=== PATIENT | female | born 1955 | race African-American/Black ===

== ENCOUNTER 2017-02-01 19:00 | Emergency (ER) | payer OTHER ==
[~2017-02-01] VITALS: Ht 170.2 cm; Wt 85.3 kg
[~2017-02-01 19:00] MED LIST: AMLO5TAB8 PO; LIP80 PO; LISI30TA6 PO; METF500T PO; ORE25 PO; VENL37.55 PO
[2017-02-01 19:21] VITALS: BP 156/100
--- NOTE | 2017-02-01 20:02 | NUR ---
PT TAKEN TO BED 3
--- NOTE | 2017-02-01 20:03 | NUR ---
61 Y/O F W/C/O R SIDE ABD PAIN X 3 DAYS, DENIES ANY N/V/D OR FEVER AND CHILLS. MED DM, AND HNT. NO S/S OF DISTRESS NOTED AT THE MOMENT. ER MADE AWARE.
--- NOTE | 2017-02-01 20:06 | NUR ---
Dr. Palacio evaluating patient at bedside.
[2017-02-01] MEDS ORDERED: MORPHINE SULFATE 4 MG/ML SYR IVP ONE ×2 (20:15→22:20)
[2017-02-01] MEDS ORDERED: NACL 0.9% 2,000 ML IV ONE (20:15)
[2017-02-01] MEDS ORDERED: ONDANSETRON 4 MG/2 ML VIAL IVP ONE (20:15)
[2017-02-01 20:53] LABS: HEMATOCRIT 42.4 % (36-48); MEAN CORPUSCULAR HEMOGLOBIN 30 pg (27-31); MEAN CORPUSCULAR HGB CONC 33 g/dL (33-37); MEAN CORPUSCULAR VOLUME 90 fL (80-94); PLATELET COUNT (AUTO) 159 K/uL (140-450); RED BLOOD CELL COUNT(AUTO) 4.72 MIL/uL (4.20-5.40); RED CELL DISTRIBUTION WIDTH 13.1 % (11.6-13.7); WHITE BLOOD COUNT (AUTO) 6.8 K/uL (4.8-10.8)
[2017-02-01 20:56] LABS: ALBUMIN 4.8 g/dL (3.4-5.0); ANION GAP 12.4 (8-16); CALCIUM 9.7 mg/dL (8.5-10.1); CARBON DIOXIDE 33.2 mmol/L (21-32); POTASSIUM 3.6 mmol/L (3.5-5.1); TOTAL BILIRUBIN 0.4 mg/dL (0.0-1.0); TOTAL PROTEIN, SERUM 8.1 g/dL (6.4-8.2)
[2017-02-01 21:06] LABS: PROTHROMBIN TIME 9.9 secs (10.8-13.4)
[2017-02-01 21:07] LABS: PARTIAL THROMBOPLASTIN TIME 17.8 secs (22-35.6)
--- NOTE | 2017-02-01 21:08 | NUR ---
PT TAKEN TO CT
[2017-02-01 21:10] LABS: BAND % (MANUAL) 1 % (0-8); EOSINOPHILS % (MANUAL) 1 % (0-4); LYMPHOCYTES % (MANUAL) 42 % (20-46); MONOCYTES % (MANUAL) 6 % (5-12); NEUTROPHILS % (MANUAL) 50 (43-65)
[2017-02-01 21:11] LABS: PLATELET ESTIMATE ADEQUATE
--- NOTE | 2017-02-01 21:36 | NUR ---
PT RETURN FROM CT
--- NOTE | 2017-02-01 21:38 | NUR ---
PT MOVED TO BED 6
--- NOTE | 2017-02-01 21:45 | NUR ---
PT TRANSFERRED TO BED 6, REPORT RECEIVED FROM TAYA PEACOCK
[2017-02-01 22:51] LABS: APPEARANCE,URINE CLOUDY (CLEAR); BILIRUBIN,URINE NEGATIVE (NEGATIVE); BLOOD, URINE NEGATIVE (NEGATIVE); COLOR,URINE YELLOW (YELLOW); LEUKOCYTE ESTERASE ,URINE NEGATIVE (NEGATIVE); NITRITE, URINE NEGATIVE (NEGATIVE); PROTEIN,URINE NEGATIVE (NEGATIVE); UGLUCOSE NEGATIVE (NEGATIVE); UROBILINOGEN,URINE 0.2 EU/dL (0.2 - 1)
[2017-02-01 22:54] LABS: BACTERIA,URINE RARE /HPF (None Seen); CALCIUM OXALATE CRYSTALS,UR 0-10 /HPF (None Seen); RBC,URINE 0-3 /HPF (0-5); SQUAMOUS EPITHELIAL CELL,UR 0-3 /LPF (0-3 (FEW)); WBC,URINE 0-3 /HPF (0-5)
[2017-02-01 22:55] LABS: URINE AMORPHOUS URATE 4+ /HPF (None Seen)
[2017-02-01] MEDS ORDERED: HYDROcodone/APAP 5/325 MG 1 TAB TAB PO ONE (23:25)
[2017-02-01 23:58] VITALS: BP 149/95
--- NOTE | 2017-02-01 23:59 | NUR ---
Patient discharged with v/s stable. Written and verbal after care instructions given and explained. Patient alert, oriented and verbalized understanding of instructions. Ambulatory with steady gait. All questions addressed prior to discharge. ID band removed. Patient advised to follow up with PMD. Rx of FLOMAX AND NORCO given. Patient educated on indication of medication including possible reaction and side effects. Opportunity to ask questions provided and answered. COPY OF CD GIVEN TO PT.
== END 2017-02-01 23:59 | disposition home or self-care (01) ==
LOC: MED 19:00
DX: R10.31 Right lower quadrant pain (principal); E11.9 Type 2 diabetes mellitus without complications; I10 Essential (primary) hypertension; Z87.442 Personal history of urinary calculi; Z90.710 Acquired absence of both cervix and uterus
CPT/HCPCS: 36415; 74177; 80053; 81001; 85025; 85610; 85730; 96361; 96374; 96375; 96376; 99285; J2270; J2405; J7030; Q9967

== ENCOUNTER 2019-06-23 13:47 | Inpatient (IN) | payer OTHER ==
[~2019-06-23] VITALS: Ht 170.2 cm; Wt 81.6 kg
--- NOTE | 2019-06-23 13:47 | NUR ---
PT BIBA to bed 10.
[2019-06-23 13:49] VITALS: BP 156/105
--- NOTE | 2019-06-23 15:08 | NUR ---
XRAY AT BEDSIDE.
--- NOTE | 2019-06-23 15:11 | NUR ---
PT PLACED ON BEDPAN, LINENS CHANGED, URINE SAMPLE COLLECT AND SENT TO LAB. PT POSITIONED TO COMFORT AFTER.
--- NOTE | 2019-06-23 15:22 | NUR ---
Dr. Reed evaluating patient at bedside.
[2019-06-23 15:50] LABS: BASOPHILS % (AUTO) 0.7 % (0.0-2.0); EOSINOPHILS # (AUTO) 0.1 K/uL (0-0.4); EOSINOPHILS % (AUTO) 2.2 % (0.0-4.0); HEMOGLOBIN 15.2 g/dL (12.0-16.0); LYMPHOCYTES # (AUTO) 1.2 K/uL (2.5-16.5); LYMPHOCYTES % (AUTO) 23.9 % (20.5-51.1); MEAN CORPUSCULAR HEMOGLOBIN 28 pg (27-31); MEAN CORPUSCULAR HGB CONC 33 g/dL (33-37); MEAN CORPUSCULAR VOLUME 84.8 fL (80-94); MONOCYTES # (AUTO) 0.3 K/uL (0.8-1.0); MONOCYTES % (AUTO) 5.4 % (1.7-9.3); NEUTROPHILS # (AUTO) 3.4 K/uL (1.8-7.7); NEUTROPHILS % (AUTO) 67.8 % (42.2-75.2); PLATELET COUNT (AUTO) 252 K/uL (140-450); RED BLOOD CELL COUNT(AUTO) 5.42 MIL/uL (4.20-5.40); RED CELL DISTRIBUTION WIDTH 15.9 % (11.6-13.7); WHITE BLOOD COUNT (AUTO) 5.1 K/uL (4.8-10.8)
[2019-06-23] MEDS ORDERED: NACL 0.9% 1,000 ML IV ONE (16:00)
[2019-06-23 16:08] LABS: APPEARANCE,URINE CLEAR (CLEAR); BILIRUBIN,URINE NEGATIVE (NEGATIVE); BLOOD, URINE NEGATIVE (NEGATIVE); COLOR,URINE YELLOW (YELLOW); LEUKOCYTE ESTERASE ,URINE TRACE (NEGATIVE); NITRITE, URINE NEGATIVE (NEGATIVE); UGLUCOSE NEGATIVE (NEGATIVE)
[2019-06-23 16:10] LABS: ANION GAP 15.8 (8-16); CARBON DIOXIDE 29.3 mmol/L (21-32)
[2019-06-23 16:13] LABS: POTASSIUM 2.1 mmol/L (3.5-5.1)
[2019-06-23 16:14] LABS: RBC,URINE NONE SEEN /HPF (0-5); WBC,URINE 0-5 /HPF (0-5)
[2019-06-23] MEDS ORDERED: KCL 20 MEQ/WATER INJ PREMIX 200 ML IV ONE (16:15)
[2019-06-23] MEDS ORDERED: POTASSIUM CHLORIDE 10 MEQ TABER PO ONE (16:15)
[2019-06-23] MEDS ORDERED: MORPHINE SULFATE 4 MG/ML SYR IVP ONE (18:20)
[2019-06-23] MEDS ORDERED: cloNIDine 0.1 MG TAB PO PRN (18:50)
[2019-06-23] MEDS ORDERED: MAGNESIUM OXIDE 400 MG TAB PO PRN (18:50)
[2019-06-23] MEDS ORDERED: MAG SULF 2000 MG/WATER PREMIX 50 ML IV PRN (18:50)
[2019-06-23] MEDS ORDERED: ALUMINUM HYD/MAG/SIMETHICONE 30 ML UDC PO PRN (18:50)
[2019-06-23] MEDS ORDERED: DOCUSATE SODIUM 250 MG GELCAP PO PRN (18:50)
[2019-06-23] MEDS ORDERED: ZOLPIDEM 5 MG TAB PO PRN (18:50)
[2019-06-23] MEDS ORDERED: ACETAMINOPHEN 650 MG SUPP RC PRN (18:50)
[2019-06-23] MEDS ORDERED: HYDROcodone/APAP 5/325 MG 1 TAB TAB PO PRN ×2 (18:50)
[2019-06-23] MEDS ORDERED: diphenhydrAMINE 50 MG/ML VIAL IVP PRN (18:50)
[2019-06-23] MEDS ORDERED: POTASSIUM CHLORIDE 40 MEQ, LIDOCAINE 1% 25 MG in NACL 0.9% 250 ML IV PRN (18:50)
[2019-06-23] MEDS ORDERED: BISACODYL 10 MG SUPP RC PRN (18:50)
[2019-06-23] MEDS ORDERED: guaiFENesin DM 200/20 MG-10 ML 10 ML UDC PO PRN (18:50)
[2019-06-23] MEDS ORDERED: ONDANSETRON 4 MG/2 ML VIAL IVP PRN (18:50)
[2019-06-23] MEDS ORDERED: ALBUTEROL 0.083% 2.5 MG/3 ML NEBU INH PRN (18:50)
[2019-06-23] MEDS ORDERED: ACETAMINOPHEN 325 MG TAB PO PRN (18:50)
[2019-06-23] MEDS ORDERED: DEXTROSE 50% 50 ML SYR IVP PRN (18:50)
[2019-06-23] MEDS ORDERED: INSULIN LISPRO SLIDING SCALE 100 UNITS/ML VIAL SUBQ PRN (18:50)
[2019-06-23] MEDS ORDERED: POTASSIUM CHLORIDE 10 MEQ TABER PO PRN (18:50)
[2019-06-23] MEDS ORDERED: SODIUM PHOSPHATE 118 ML ENEM RC PRN (18:50)
[2019-06-23] MEDS ORDERED: IPRATROPIUM 0.02% 0.5 MG/2.5 ML NEBU INH PRN (18:50)
[2019-06-23] MEDS ORDERED: LORazepam 2 MG/ML VIAL IVP PRN (18:50)
[2019-06-23 19:00] VITALS: BP 149/79
--- NOTE | 2019-06-23 19:00 | NUR ---
Patient will be admitted to care of Dr Aldana. Admited to tele room 106b. Belongings list completed. Report to TAYA Jose
--- NOTE | 2019-06-23 19:05 | NUR ---
RECEIVED BEDSIDE REPORT FROM ER NURSE. PATIENT IS AWAKE, ALERT, AND COOPERATIVE. ADMITTING DIAGNOSIS HYPOKALEMIA. C/O GENERALIZED WEAKNESS. RESPIRATION EVEN UNLABORED ON ROOM AIR. SKIN IS WARM AND DRY. IV PATENT AND INTACT. HEART RATE REGULAR. S1 AND S2 NOTED. BOWEL SOUNDS ACTIVE AND PRESENT IN ALL 4 QUADRANTS. ABDOMEN SOFT AND NON-TENDER. LAST BM 06/22/19. PATIENT IS RECEIVING POTASSIUM 20MEQ THAT STARTED FROM ER. DENIES PAIN. MRSA SCREEN DONE. VITALS WERE TAKEN. ALL SAFETY MEASURES IN PLACE. ORIENT PATIENT TO ROOM, STAFF, AND CALL LIGHT. PLAN OF CARE WAS DISCUSSED. BED IS AT LOW POSITION. CALL LIGHT WITHIN REACH AND VERBALIZES ITS USE. WILL CONTINUE TO MONITOR.
[2019-06-23] MEDS: BLOOD GLUCOSE MONITORING 1 DEV DEV FS SCH (20:23)
[2019-06-23] MEDS: metFORMIN 500 MG TAB PO SCH (20:24)
--- NOTE | 2019-06-23 20:25 | NUR ---
POTASSIUM CHLORIDE 20MEq FIRST DOSE FINISHED. 2ND BAG OF POTASSIUM CHLORIDE 20MEQ ADMINISTERED PER ORDER. ORDER IS TOTAL OF 40MEQ. WILL CONTINUE TO MONITOR.
--- NOTE | 2019-06-23 21:00 | NUR ---
ALL SCHEDULED MEDS WERE GIVEN PER ORDER. WILL CONTINUE TO MONITOR
--- NOTE | 2019-06-23 21:45 | NUR ---
PATIENT COMPLAINED OF LEFT KNEE PAIN 8. PRN PAIN MED ADMINISTERED PER ORDER. WILL CONTINUE TO MONITOR.
[2019-06-23] MEDS: MORPHINE SULFATE 2 MG/ML SYR IVP PRN (21:46)
--- NOTE | 2019-06-23 23:00 | NUR ---
PATIENT IN BED WATCHING TV RESPIRATION EVEN UNLABORED ON ROOM AIR. NO DISTRESS NOTED. WILL CONTINUE TO MONITOR.
[2019-06-24] VITALS: BP 145/83
--- NOTE | 2019-06-24 | NUR ---
VITALS WERE TAKEN. PATIENT IN STABLE CONDITION. NO DISTRESS NOTED. WILL CONTINUE TO MONITOR.
--- NOTE | 2019-06-24 02:00 | NUR ---
CHECKED PATIENT. PATIENT SLEEPING RESPIRATION EVEN UNLABORED ON ROOM AIR. NO DISTRESS NOTED. WILL CONTINUE TO MONITOR.
[2019-06-24] MEDS: MORPHINE SULFATE 2 MG/ML SYR IVP PRN ×4 (03:58→21:04)
[2019-06-24 04:00] VITALS: BP 137/86
--- NOTE | 2019-06-24 04:00 | NUR ---
VITALS WERE TAKEN. PATIENT IN STABLE CONDITION. COMPLAINED OF LEG PAIN 8/. PRN PAIN MED ADMINISTERED PER ORDER. WILL CONTINUE TO MONITOR.
[2019-06-24] MEDS: BLOOD GLUCOSE MONITORING 1 DEV DEV FS SCH ×4 (06:22→20:31)
--- NOTE | 2019-06-24 07:52 | NUR ---
ENDORSED PATIENT TO DAY SHIFT NURSE KEESHA FOR CONTINUITY OF CARE. PATIENT IN STABLE CONDITION.
[2019-06-24 08:00] VITALS: BP 139/77
--- NOTE | 2019-06-24 08:24 | NUR ---
PATIENT HAS BEEN SCREENED AND CATEGORIZED MODERATE NUTRITION RISK. PATIENT WILL BE SEEN WITHIN 3-5 DAYS OF ADMISSION. 06/26/19 06/28/[address]
[2019-06-24 08:51] LABS: ANION GAP 13.5 (8-16); CARBON DIOXIDE 30.5 mmol/L (21-32); CREATININE 0.8 mg/dL (0.6-1.3)
[2019-06-24] MEDS ORDERED: amLODIPine 5 MG TAB PO SCH (09:00)
[2019-06-24] MEDS: LISINOPRIL 10 MG TAB PO SCH (09:36)
[2019-06-24] MEDS: VENLAFAXINE 37.5 MG TAB PO SCH (09:36)
[2019-06-24] MEDS: metFORMIN 500 MG TAB PO SCH ×2 (09:37→20:33)
[2019-06-24] MEDS: ATORVASTATIN 80 MG TAB PO SCH (09:37)
[2019-06-24 13:05] VITALS: BP 139/77
--- NOTE | 2019-06-24 13:31 | NUR ---
CONTACTED PATIENT'S PCP RALPH GONZALES'S OFFICE AT [phone] FOR POST DISCHARGE APPOINTMENT, ABLE TO SPEAK TO CORI. SHE PROVIDED ME WITH JUL 01, 2019 AT 1100. ADDRESS TO THE OFFICE IS [address] [place] [address], [id number]. WILL PROVIDE A COPY TO THE PATIENT.
[2019-06-24] MEDS ORDERED: MAG SULF 2000 MG/WATER PREMIX 50 ML IV SCH (14:00)
--- NOTE | 2019-06-24 15:44 | NUR ---
Waterworks Chief Engineer Note: I provided patient with post discharge follow up appt made by Billing And Accounting Staff Assistant Tonya.
[2019-06-24 16:00] VITALS: BP 137/80
[2019-06-24] MEDS ORDERED: POTASSIUM CHLORIDE 10 MEQ TABER PO SCH (16:00)
--- NOTE | 2019-06-24 19:10 | NUR ---
RECEIVED BEDSIDE REPORT FROM DAY SHIFT NURSE. PATIENT IS AWAKE, ALERT, AND COOPERATIVE. RESPIRATION EVEN UNLABORED ON ROOM AIR. NO DISTRESS NOTED. SKIN IS WARM AND DRY. IV PATENT AND INTACT. DENIES PAIN. PLAN OF CARE WAS DISCUSSED. ALL SAFETY MEASURES IN PLACE. BED IS AT LOW POSITION. CALL LIGHT WITHIN REACH AND VERBALIZES ITS USE. WILL CONTINUE TO MONITOR.
[2019-06-24 20:00] VITALS: BP 138/75
--- NOTE | 2019-06-24 20:00 | NUR ---
INITIAL ASSESSMENT DONE. VITALS WERE TAKEN. PATIENT IN STABLE CONDITION. NO DISTRESS NOTED. WILL CONTINUE TO MONITOR.
--- NOTE | 2019-06-24 21:00 | NUR ---
ALL SCHEDULED MEDS WERE GIVEN PER ORDER. NO ASE NOTED. WILL CONTINUE TO MONITOR.
--- NOTE | 2019-06-24 21:05 | NUR ---
PATIENT COMPLAINED OF 8/10 LEFT KNEE PAIN. PRN PAIN MED ADMINISTERED PER ORDER. WILL CONTINUE TO MONITOR.
--- NOTE | 2019-06-24 22:00 | NUR ---
PATIENT IV GOT INFILTRATED. DISCONTINUE NO ACTIVE BLEEDING SEEN. CANNULA TIP INTACT. STARTED A NEW IV LINE 24 G LEFT HAND.PATIENT TOLERATING IT WELL. WILL CONTINUE TO MONITOR.
[2019-06-25] VITALS: BP 134/77
--- NOTE | 2019-06-25 | NUR ---
VITALS WERE TAKEN. PATIENT IN STABLE CONDITION. NO DISTRESS NOTED. WILL CONTINUE TO MONITOR.
--- NOTE | 2019-06-25 02:00 | NUR ---
CHECKED ON PATIENT. PATIENT SLEEPING RESPIRATION EVEN UNLABORED ON ROOM AIR. NO DISTRESS NOTED. WILL CONTINUE TO MONITOR.
[2019-06-25 04:00] VITALS: BP 140/84
--- NOTE | 2019-06-25 04:00 | NUR ---
VITALS WERE TAKEN. PATIENT IN STABLE CONDITION. NO DISTRESS NOTED. WILL CONTINUE TO MONITOR.
[2019-06-25] MEDS: BLOOD GLUCOSE MONITORING 1 DEV DEV FS SCH ×4 (06:04→20:22)
[2019-06-25 07:01] LABS: MAGNESIUM 2.1 mg/dL (1.8-2.4); PHOSPHORUS 3.5 mg/dL (2.5-4.9)
[2019-06-25 07:04] LABS: BASOPHILS % (AUTO) 0.4 % (0.0-2.0); EOSINOPHILS # (AUTO) 0.5 K/uL (0-0.4); EOSINOPHILS % (AUTO) 9.2 % (0.0-4.0); HEMATOCRIT 38.4 % (36-48); HEMOGLOBIN 12.7 g/dL (12.0-16.0); LYMPHOCYTES % (AUTO) 20.6 % (20.5-51.1); MEAN CORPUSCULAR HEMOGLOBIN 28 pg (27-31); MEAN CORPUSCULAR HGB CONC 33 g/dL (33-37); MEAN CORPUSCULAR VOLUME 85.2 fL (80-94); MONOCYTES # (AUTO) 0.3 K/uL (0.8-1.0); MONOCYTES % (AUTO) 5.9 % (1.7-9.3); NEUTROPHILS # (AUTO) 3.2 K/uL (1.8-7.7); NEUTROPHILS % (AUTO) 63.9 % (42.2-75.2); PLATELET COUNT (AUTO) 214 K/uL (140-450); RED BLOOD CELL COUNT(AUTO) 4.51 MIL/uL (4.20-5.40); RED CELL DISTRIBUTION WIDTH 15.7 % (11.6-13.7); WHITE BLOOD COUNT (AUTO) 5.1 K/uL (4.8-10.8)
[2019-06-25 07:06] LABS: ANION GAP 14.1 (8-16); CARBON DIOXIDE 28.9 mmol/L (21-32); CREATININE 0.6 mg/dL (0.6-1.3)
--- NOTE | 2019-06-25 07:21 | NUR ---
ENDORSED GIVEN TO DAY SHIFT NURSE. PATIENT IN STABLE CONDITION.
--- NOTE | 2019-06-25 07:25 | NUR ---
RECEIVED REPORT FROM HISTOLOGY MANAGER NURSE. PT AROUSABLE BY NAME, [id number]. 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 RESPIRATIONS EVEN AND UNLABORED ON RA. IV ON LT HAND 24 GA ON SALINE LOCK. ABD SOFT, ACTIVE BS. SKIN IS INTACT, WARM TO TOUCH. REVIEWED POC WITH PT, PT VERBALIZED UNDERSTANDING.
[2019-06-25 08:00] VITALS: BP 136/80
[2019-06-25] MEDS: metFORMIN 500 MG TAB PO SCH ×2 (09:00→20:22)
[2019-06-25] MEDS: VENLAFAXINE 37.5 MG TAB PO SCH (09:00)
[2019-06-25] MEDS: ATORVASTATIN 80 MG TAB PO SCH (09:01)
[2019-06-25] MEDS: LISINOPRIL 10 MG TAB PO SCH (09:02)
[2019-06-25] MEDS: amLODIPine 5 MG TAB PO SCH (09:02)
--- NOTE | 2019-06-25 09:02 | NUR ---
GIVEN MORNING MEDICATIONS PER ORDER, PT IS AWARE OF INDICATIONS AND POTENTIAL SIDE EFFECTS. NOTIFIED PT REGARDING POTASSIUM LEVEL, WILL GIVE POTASSIUM AT A LATER TIME PER ORDER. PT ANSWERED CLARIFIED AT THIS TIME.
[2019-06-25] MEDS: MORPHINE SULFATE 2 MG/ML SYR IVP PRN ×3 (09:03→20:26)
--- NOTE | 2019-06-25 10:13 | NUR ---
IV POTASSIUM GIVEN PER ORDER. PT GIVEN CLEAN GOWN AND BATH/CARE SUPPLIES PER REQUEST.
[2019-06-25] MEDS: POTASSIUM CHLORIDE 10 MEQ TABER PO SCH ×2 (11:16→17:08)
[2019-06-25 12:00] VITALS: BP 137/81
[2019-06-25] MEDS ORDERED: ENOXAPARIN 40 MG/0.4 ML SYR SUBQ SCH (12:00)
--- NOTE | 2019-06-25 12:45 | NUR ---
PT GIVEN LOVENOX PER ORDER, PT AWARE OF INDICATION AND POTENTIAL SIDE EFFECTS OF MEDICATION. PT HAS NO SIGNS OF DISTRESS AT THIS TIME.
--- NOTE | 2019-06-25 15:55 | NUR ---
CHANGED BED LINENS PER PT REQUEST. ASSISTED PT TO RESTROOM, AMBULATING WITH UNSTEADY GAIT.
[2019-06-25 16:00] VITALS: BP 140/81
--- NOTE | 2019-06-25 19:20 | NUR ---
Received endorsement from AM shift RN; patient A/Ox4, able to make needs known, ambulatory with 1-person assist. Introduced self, updated board. No SOB or distress noted, on room air. IV site on left hand, 24 gauge, saline locked. Skin intact. Bed in the lowest position, call light within reach. Initial assessment done. Will continue to monitor.
[2019-06-25 20:00] VITALS: BP 127/76
--- NOTE | 2019-06-25 20:35 | NUR ---
Vitals take, no distress noted.
--- NOTE | 2019-06-25 21:40 | NUR ---
Due meds given, tolerated well.
--- NOTE | 2019-06-25 23:35 | NUR ---
Vitals take, no SOB or distress noted.
[2019-06-26] VITALS: BP 133/86
--- NOTE | 2019-06-26 02:00 | NUR ---
Checks made; patient resting comfortably, visible chest rise and fall noted.
[2019-06-26 04:00] VITALS: BP 122/69
--- NOTE | 2019-06-26 04:15 | NUR ---
Vitals taken, no distress noted. Patient sleeping, visible chest rise and fall noted.
[2019-06-26] MEDS: MORPHINE SULFATE 2 MG/ML SYR IVP PRN (04:48)
--- NOTE | 2019-06-26 06:05 | NUR ---
Vitals stable, due meds given. Will endorse to AM shift RN for continuity of care.
[2019-06-26] MEDS: BLOOD GLUCOSE MONITORING 1 DEV DEV FS SCH ×2 (06:08→11:38)
--- NOTE | 2019-06-26 07:05 | NUR ---
RECEIVED REPORT FROM WEAVING SUPERVISOR NURSE AT BEDSIDE FOR CONTINUITY OF CARE. PT AROUSABLE BY NAME, [id number]. 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 RESPIRATIONS EVEN AND UNLABORED ON RA. IV ON LT HAND 24 GA ON SALINE LOCK. ABD SOFT, ACTIVE BS. SKIN IS INTACT, WARM TO TOUCH. REVIEWED POC WITH PT, PT VERBALIZED UNDERSTANDING. UPDATED BOARD. WILL CONTINUE TO MONITOR PATIENT.
[2019-06-26 08:00] VITALS: BP 133/72
[2019-06-26] MEDS: VENLAFAXINE 37.5 MG TAB PO SCH (08:15)
[2019-06-26] MEDS: LISINOPRIL 10 MG TAB PO SCH (08:15)
[2019-06-26] MEDS: metFORMIN 500 MG TAB PO SCH (08:15)
[2019-06-26] MEDS: amLODIPine 5 MG TAB PO SCH (08:16)
[2019-06-26] MEDS: ATORVASTATIN 80 MG TAB PO SCH (08:16)
--- NOTE | 2019-06-26 08:20 | NUR ---
ORDERED MEDICATIONS GIVEN. PATIENT TOLERATED THEM. REFUSED LIPITOR, PT WOULD PREFER TO TAKE IT AT NIGHT, LIKE AT HOME. RN VERBALIZED UNDERSTANDING AND WILL PUT REQUEST FORTH FOR PHARMACY. WILL CONTINUE TO MONITOR PATIENT.
[2019-06-26] MEDS ORDERED: ENOXAPARIN 40 MG/0.4 ML SYR SUBQ SCH (09:00)
[2019-06-26 10:28] LABS: BASOPHILS % (AUTO) 0.7 % (0.0-2.0); EOSINOPHILS # (AUTO) 0.4 K/uL (0-0.4); EOSINOPHILS % (AUTO) 11.2 % (0.0-4.0); HEMATOCRIT 37.9 % (36-48); HEMOGLOBIN 12.5 g/dL (12.0-16.0); LYMPHOCYTES # (AUTO) 1.1 K/uL (2.5-16.5); LYMPHOCYTES % (AUTO) 29.2 % (20.5-51.1); MEAN CORPUSCULAR HEMOGLOBIN 28 pg (27-31); MEAN CORPUSCULAR HGB CONC 33 g/dL (33-37); MONOCYTES # (AUTO) 0.2 K/uL (0.8-1.0); MONOCYTES % (AUTO) 5.6 % (1.7-9.3); NEUTROPHILS # (AUTO) 2.1 K/uL (1.8-7.7); NEUTROPHILS % (AUTO) 53.3 % (42.2-75.2); PLATELET COUNT (AUTO) 219 K/uL (140-450); RED BLOOD CELL COUNT(AUTO) 4.41 MIL/uL (4.20-5.40); RED CELL DISTRIBUTION WIDTH 15.8 % (11.6-13.7); WHITE BLOOD COUNT (AUTO) 3.9 K/uL (4.8-10.8)
[2019-06-26 10:56] LABS: ANION GAP 13.3 (8-16); CARBON DIOXIDE 28.4 mmol/L (21-32); CREATININE 0.7 mg/dL (0.6-1.3); POTASSIUM 3.7 mmol/L (3.5-5.1)
[2019-06-26 11:02] LABS: MAGNESIUM 1.9 mg/dL (1.8-2.4); PHOSPHORUS 2.7 mg/dL (2.5-4.9)
[2019-06-26 12:00] VITALS: BP 136/82
--- NOTE | 2019-06-26 13:10 | NUR ---
DISCHARGE INSTRUCTIONS AND EDUCATION GIVEN TO PATIENT. PATIENT VERBALIZED UNDERSTANDING. PER PATIENT, DAUGHTER WILL BE IN TO PICK HER UP TO BE DISCHARGED HOME AT 1400. WILL REMOVE IV, ID, AND TELE MONITOR THEN.
--- NOTE | 2019-06-26 15:50 | NUR ---
IV REMOVED, IV CATHETER INTACT, MINIMAL BLEEDING NOTED. ID BANDS CUT. TELE MONITOR REMOVED. PATIENT'S DAUGHTER IS HERE TO TAKE HER HOME.
--- NOTE | 2019-06-26 15:55 | NUR ---
PATIENT WHEELED OFF FLOOR WITH RN AND DAUGHTER TO BE DISCHARGED HOME. PATIENT IN STABLE CONDITION. PATIENT TOOK ALL HER BELONGINGS WITH HER.
== END 2019-06-26 15:55 | disposition home or self-care (01) | DRG 425 ==
LOC: MED 13:47 → MTU 17:56
PROVIDERS: ADMIT Internal Medicine Pulmonary Disease; ATTEND Internal Medicine Pulmonary Disease
DX: E87.6 Hypokalemia (principal); E83.51 Hypocalcemia; E11.9 Type 2 diabetes mellitus without complications; T50.2X5A Adverse effect of carbonic-anhydrase inhibitors, benzothiadiazides and other diuretics, initial encounter; E78.5 Hyperlipidemia, unspecified; I10 Essential (primary) hypertension; Z96.659 Presence of unspecified artificial knee joint; F32.9 Major depressive disorder, single episode, unspecified; F41.9 Anxiety disorder, unspecified; E78.00 Pure hypercholesterolemia, unspecified; R25.2 Cramp and spasm; Y92.89 Other specified places as the place of occurrence of the external cause; Z79.4 Long term (current) use of insulin; Z79.899 Other long term (current) drug therapy
CPT/HCPCS: 36415; 70450; 71045; 80048; 81001; 82948; 83735; 84100; 84443; 84484; 85025; 85651; 86140; 87081; 93970; 94640; 96365; 96375; 99285; J1650; J2001; J2270; J3475; J3480; J7030; J7613; J7644; Q0092